=== PATIENT | female | born 1980 | race Caucasian/White ===

== ENCOUNTER → 2018-02-13 | Outpatient (CLI) | payer OTHER ==
--- NOTE | 2018-02-13 11:00 | MR ---
EXAMINATION TYPE: MR hip RT wo con, MR hip LT wo con DATE OF EXAM: 02/13/2018 COMPARISON: NONE HISTORY: 38-year-old female Bilateral hip pain TECHNIQUE: Multiplanar, multisequence images of the right and left hips were obtained without IV cont rast. FINDINGS: The hips are symmetric and intact with small joint effusions. No large paralabral cyst is seen though there is some degenerative signal in the superior labrum on t he left. There is also small fibrocystic change along the anterior superior femoral head neck junctio n on the left. In addition, there is a tiny anterior femoral head neck junction osseous excrescence on the right, sa gittal image 12. Overall hip joint space is maintained on both sides. No evidence for hip fracture or AVN. The sacrum and SI joints appear intact. The rectus femoris and hamstring origins as well as the iliopsoas insertions appear intact. There is intermediate signal at the left greater than right gluteal insertions. No trochanteric bursi tis. Symmetric course, caliber, and signal intensity of the sciatic nerves. Cervical nabothian cysts incidentally noted. Red marrow is present compatible patient's relatively young age. Transitional lumbosacral segment incidentally noted. IMPRESSION: 1. Right: Tiny anterior femoral head neck junction CAM bump. This is of uncertain clinical significan ce but can be seen in the setting of femoral acetabular impingement syndrome. Correlate with physical exam testing. Small hip joint effusion symmetric to the contralateral side. Mild insertional gluteal tendinosis. Otherwise, no specific abnormality seen. 2. Left: Some degenerative signal in the superior acetabular labrum and fibrocystic change at the fem oral head neck junction. These are also changes which can be seen in the setting of femoral acetabula r impingement syndrome. Again, correlate with physical exam testing. Mild insertional gluteal tendino sis, slightly greater than the right side. Otherwise, no specific abnormality seen.
== END | disposition home or self-care (01) ==
LOC: RADMRIMAIN 09:19
PROVIDERS: ATTEND Orthopaedic Surgery
DX: M76.01 Gluteal tendinitis, right hip (principal); M76.02 Gluteal tendinitis, left hip; R93.7 Abnormal findings on diagnostic imaging of other parts of musculoskeletal system

== ENCOUNTER → 2021-06-03 | Outpatient (CLI) | payer OTHER ==
--- NOTE | 2021-06-07 14:04 | MM ---
Reason for exam: screening (asymptomatic). Last mammogram was performed 8 years and 7 months ago. History: Family history of breast cancer in maternal aunt at age 50. Retro-pectoral saline implants in both breasts, 2019. Retro-pectoral saline implants in both breasts, 2009. Physical Findings: A clinical breast exam by your physician is recommended on an annual basis and results should be correlated with mammographic findings. MG 3D Screen Mammo Imp/Cad Bilateral CC and MLO view(s) were taken. Prior study comparison: November 01, 2012, mammogram, performed at [facility]. The breast tissue is extremely dense which could obscure a lesion on mammography. There is no discrete abnormality. Bilatral subpectoral implants redemonstrated. ASSESSMENT: Benign, BI-RAD 2 RECOMMENDATION: Routine screening mammogram of both breasts in 1 year. Some consider bilateral ultrasound surveillance in patient with extremely dense fibroglandular tissue.
== END | disposition home or self-care (01) ==
LOC: RADMAMWWP 09:52
PROVIDERS: ATTEND Family Medicine
DX: Z12.39 Encounter for other screening for malignant neoplasm of breast (principal)
CPT/HCPCS: 77063; 77067

== ENCOUNTER → 2022-11-22 | Outpatient (CLI) | payer OTHER ==
[2022-11-22 14:06] LABS: Basophils % (A) 0 %; Eosinophils # (A) 0.2 k/uL (0-0.7); Eosinophils % (A) 2 %; HGB 14.6 gm/dL (11.4-16.0); Lymphocytes # (A) 1.6 k/uL (1.0-4.8); Lymphocytes % (A) 19 %; MCH 30.1 pg (25.0-35.0); MCHC 31.8 g/dL (31.0-37.0); MCV 94.5 fL (80.0-100.0); Mean Platelet Volume 8.7; Monocytes # (A) 0.3 k/uL (0-1.0); Monocytes % (A) 4 %; Neutrophils # (A) 5.9 k/uL (1.3-7.7); Neutrophils % (A) 73 %; Platelet Count 236 k/uL (150-450); RBC 4.87 m/uL (3.80-5.40); RDW 12.4 % (11.5-15.5)
[2022-11-22 14:17] LABS: ALT 22 U/L (4-34); AST 29 U/L (14-36); African American GFR (CKD) >90 (>60 ml/min/1.73 sqM); Albumin 4.6 g/dL (3.5-5.0); Albumin/Globulin Ratio 1.6; Alkaline Phosphatase 86 U/L (38-126); Anion Gap 10 mmol/L; Blood Urea Nitrogen 12 mg/dL (7-17); Calcium 9.3 mg/dL (8.4-10.2); Carbon Dioxide 26 mmol/L (22-30); Chloride 104 mmol/L (98-107); Globulin 2.8 g/dL; Glucose 106 mg/dL (74-99); Non-African American GFR(CKD) >90 (>60 ml/min/1.73 sqM); Potassium 4.5 mmol/L (3.5-5.1); Sodium 140 mmol/L (137-145); Total Bilirubin 0.5 mg/dL (0.2-1.3); Total Protein 7.4 g/dL (6.3-8.2)
--- NOTE | 2022-11-22 14:41 | CT ---
CT CHEST FOR PULMONARY EMBOLISM. EXAMINATION TYPE: CT angio chest DATE OF EXAM: 11/22/2022 INDICATION: c/o posterior chest pain CT DLP: 397 mGycm, Automated exposure control for dose reduction was used. CONTRAST: Patient injected with 80cc mL of Isovue 370. COMPARISON: None TECHNIQUE: CT of the chest is performed on a spiral scan at 2 mm thick sections. Study is performed with intravenous contrast timed for evaluation for pulmonary embolism. This will limit additional po rtions of the evaluation. 3-D MIP images reconstructed by the technologist are reviewed on the compu ter in the coronal and sagittal planes. FINDINGS: No persistent filling defects are evident to suggest an acute pulmonary embolism. No mediastinal or hilar adenopathy enlarged by CT criteria is evident. The ascending aorta diameter at the level of the main pulmonary artery is 2.8 cm. The main pulmonary artery diameter at the bifur cation is 2.2 cm. Bilateral breast prostheses are present. Lung windows are clear. Limited CT section through the upper abdomen are unremarkable. IMPRESSIONS: 1. No acute pulmonary embolism.
== END | disposition home or self-care (01) ==
LOC: RADCTMAIN 13:26
PROVIDERS: ATTEND Family Medicine
DX: R06.00 Dyspnea, unspecified (principal)
CPT/HCPCS: 83880; 80053; 85025; 71275; 36415; Q9967

== ENCOUNTER → 2022-12-01 | Outpatient (CLI) | payer OTHER ==
--- NOTE | 2022-12-04 08:02 | MM ---
Reason for Exam: Screening (asymptomatic). Last mammogram was performed 1 year(s) and 6 month(s) ago. Patient History: Menarche at age 17. First Full-Term at age 27. Premenopausal. Hormonal Contraceptives, from age 18 until age 28. 2019, Bilateral Implants. 2009, Bilateral Implants. Maternal aunt had breast cancer, age 50. Risk Values: Alecia 5 year model risk: 0.6%. NCI Lifetime model risk: 10.2%. Prior Study Comparison: 11/01/2012 Bilateral Screening Mammogram, [facility]. 06/03/2021 Bilateral Screening Mammogram, [facility]. Tissue Density: The breast tissue is extremely dense which could obscure a lesion on mammography. Findings: Analyzed By CAD. There is no suspicious group of microcalcifications or new suspicious mass in either breast. Bilateral saline implants are intact. Overall Assessment: Benign, BI-RAD 2 Management: Screening Mammogram of both breasts in 1 year. . Patient should continue monthly self-breast exams. A clinical breast exam by your physician is recommended on an annual basis. This exam should not preclude additional follow-up of suspicious palpable abnormalities. Note on Alecia scores and lifetime risk: 1. A Alecia score greater than 3% is considered moderate risk. If this is the case, consider specialist referral to assess eligibility for a risk reducing agent. 2. If overall lifetime risk for the development of breast cancer is 20% or higher, the patient may qualify for future screening with alternating mammogram and breast MRI. Electronically signed and approved by: Roverto George M.D. Radiologis
== END | disposition home or self-care (01) ==
LOC: RADMAMWWP 07:58
PROVIDERS: ATTEND Family Medicine
DX: Z12.31 Encounter for screening mammogram for malignant neoplasm of breast (principal); Z80.3 Family history of malignant neoplasm of breast
CPT/HCPCS: 77063; 77067